=== PATIENT | male | born 2000 | race Caucasian/White ===

== ENCOUNTER 2021-07-15 22:22 | Emergency (ER) | payer OTHER ==
[~2021-07-15] VITALS: Ht 193 cm; Wt 83.9 kg
[2021-07-15 23:50] VITALS: BP 114/70
== END 2021-07-15 23:50 | disposition home or self-care (01) ==
LOC: M.ERS 22:22
DX: S01.511A Laceration without foreign body of lip, initial encounter (principal); W22.01XA Walked into wall, initial encounter; Y93.89 Activity, other specified; Y92.89 Other specified places as the place of occurrence of the external cause; Y99.8 Other external cause status